=== PATIENT | female | born 2000 | race Native Hawaiian/Other Pacific Islander ===

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

== ENCOUNTER 2021-10-24 12:01 | Emergency (ER) | payer OTHER ==
[~2021-10-24] VITALS: Ht 154.9 cm; Wt 72.6 kg
[2021-10-24 12:43] VITALS: BP 131/68; TEMP 97.4
== END 2021-10-24 12:43 | disposition home or self-care (01) ==
LOC: ED 12:01
DX: N92.1 Excessive and frequent menstruation with irregular cycle (principal); N39.0 Urinary tract infection, site not specified
CPT/HCPCS: 81002; 81015; 81025; 99282; J0696